=== PATIENT | female | born 1980 | race Caucasian/White ===

== ENCOUNTER 2024-01-18 23:18 | Emergency (ER) | payer MEDICAID ==
[~2024-01-18] VITALS: Ht 165.1 cm; Wt 54.4 kg
[2024-01-18] MEDS ORDERED: Lidocaine Hydrochloride 2% 10 ML AMP SC ONE (23:25)
[2024-01-18] MEDS ORDERED: Bacitracin Zinc 14 GM TUBE T ONE (23:25)
[2024-01-18] MEDS ORDERED: CEPHALEXIN 500 MG CAP PO ONE (23:25)
[2024-01-18] MEDS ORDERED: Tdap Vaccine 0.5 ML SYR (Adult Vaccine) IM ONE (23:25)
[2024-01-18] MEDS ORDERED: LIDOCAINE HCL/EPINEPHRINE 50 ML VIAL ONE (23:41)
[2024-01-19] MEDS ORDERED: ceFAZolin sodium 2 GM in SYRINGE INFUSION 20 ML IV ONE ×2 (00:10→23:55)
[2024-01-19] MEDS ORDERED: SODIUM CHLORIDE 0.9% 1,000 ML IV ONE ×2 (00:26→23:55)
[2024-01-19] MEDS ORDERED: ceFAZolin sodium 1 GM VIAL ONE (00:26)
== END 2024-01-19 00:50 | disposition short-term general hospital (02) ==
LOC: ED 23:18
DX: S61.511A Laceration without foreign body of right wrist, initial encounter (principal); S66.901A Unspecified injury of unspecified muscle, fascia and tendon at wrist and hand level, right hand, initial encounter; Z88.1 Allergy status to other antibiotic agents; Z91.040 Latex allergy status; X99.1XXA Assault by knife, initial encounter; Y93.89 Activity, other specified; Y92.090 Kitchen in other non-institutional residence as the place of occurrence of the external cause; Y99.8 Other external cause status